=== PATIENT | female | born 1935 | race African-American/Black ===

== ENCOUNTER 2019-08-22 16:12 | Inpatient (IN) | payer MEDICARE, MEDICAID ==
[~2019-08-22] VITALS: Ht 165.1 cm; Wt 69.9 kg
[2019-08-22 17:38] LABS: BASOPHILS % 0.8 % (0.0-2.0); EOSINOPHILS % 3.9 % (0.0-5.0); HEMATOCRIT. 42.3 % (36.0-48.0); LYMPHOCYTES % 31.2 % (20.0-50.0); MEAN PLATELET VOLUME 9.2 fl (7.4-10.4); MONOCYTES % 13.2 % (2.0-8.0); NEUTROPHILS % 50.9 % (40.0-76.0); PLATELET 196 x1000/uL (130-400); RED BLOOD CELL COUNT 4.81 mill/uL (4.2-5.4); RED CELL DISTRIBUTION WIDTH 15.2 % (11.6-14.6)
[2019-08-22 17:43] LABS: CHLORIDE 106 mEq/L (98-107)
[2019-08-22 17:47] LABS: ETHANOL BLOOD < 10 mg/dL
[2019-08-22] MEDS ORDERED: AZITHROMYCIN 500 MG in DEXT 5% WATER 250 ML IV STA (21:23)
[2019-08-22] MEDS ORDERED: CEFTRIAXONE 2 G PREMIX 50 ML IV ONE (21:30)
[2019-08-23 00:09] LABS: CLARITY URINE TURBID (CLEAR); COLOR URINE YELLOW (YELLOW); KETONES URINE NEGATIVE (NEGATIVE); LEUKOCYTE ESTERASE URINE 3+ (NEGATIVE); NITRITE URINE POSITIVE (NEGATIVE); OCCULT BLOOD URINE 3+ (NEGATIVE); PROTEIN URINE TRACE (NEGATIVE); SPECIFIC GRAVITY URINE 1.016 (1.005-1.030); UROBILINOGEN URINE 0.2 E.U./dL (0.2-1.0)
[2019-08-23 00:46] LABS: *BARBITURATES SCREEN URINE NEGATIVE (NEGATIVE); *BENZODIAZEPINES SCREEN URINE NEGATIVE (NEGATIVE); *COCAINE SCREEN URINE NEGATIVE (NEGATIVE)
[2019-08-23 00:47] LABS: *AMPHETAMINES SCREEN URINE NEGATIVE (NEGATIVE); CANNABINOID URINE SCREEN NEGATIVE (NEGATIVE); METHADONE URINE SCREEN NEGATIVE (NEGATIVE); OPIATES URINE SCREEN NEGATIVE (NEGATIVE); PHENCYCLIDINE URINE SCREEN NEGATIVE (NEGATIVE)
[2019-08-23 05:30] VITALS: BP 147/113
[2019-08-23 05:47] VITALS: BP 147/113
[2019-08-23] MEDS ORDERED: SOTA80TA PO (06:02)
[2019-08-23] MEDS ORDERED: ASPI-1497 MT (06:02)
[2019-08-23] MEDS ORDERED: HYDROCODONE/ACETAMINOPHEN 10/325MG TABLET PO PRN (06:45)
[2019-08-23] MEDS ORDERED: HYDRALAZINE 20MG/ML VIAL IV PRN (06:45)
[2019-08-23] MEDS ORDERED: DOCUSATE SODIUM 100MG CAPSULE PO PRN (06:45)
[2019-08-23] MEDS ORDERED: DEXTROSE 50% WATER 50ML SYRINGE IV PRN (06:45)
[2019-08-23] MEDS ORDERED: MORPHINE SULFATE 2 MG/ML CPJ (NOT FOR IM USE) IV PRN (06:45)
[2019-08-23] MEDS ORDERED: ACETAMINOPHEN 325MG TABLET PO PRN (06:45)
[2019-08-23] MEDS ORDERED: IPRATROPIUM/ALBUTEROL 0.5-3(2.5)MG/3ML NEB NEB PRN (06:45)
[2019-08-23] MEDS ORDERED: MAGNESIUM/ALUMINUM HYDROXIDE/SIMETHICONE 30ML UDC PO PRN (06:45)
[2019-08-23] MEDS ORDERED: ONDANSETRON HCL 4MG/2ML INJ IV PRN (06:45)
[2019-08-23] MEDS ORDERED: DIPHENHYDRAMINE 50MG/ML VIAL IV PRN (06:45)
[2019-08-23] MEDS ORDERED: GUAIFENESIN 200MG/10ML SUGAR FREE UDC PO PRN (06:45)
[2019-08-23 06:49] VITALS: BP 157/80
[2019-08-23] MEDS: INSULIN LISPRO 100 UNITS/ML SUBCUT SCH ×4 (07:10→20:25)
[2019-08-23 08:00] VITALS: BP 172/75
[2019-08-23] MEDS: ENOXAPARIN 40MG/0.4ML SYR SUBCUT SCH (09:09)
[2019-08-23] MEDS: BLOOD SUGAR DIAGNOSTIC STRIP TEST SCH ×3 (11:40→20:25)
[2019-08-23 12:00] VITALS: BP 194/86
[2019-08-23] MEDS: LORAZEPAM 2MG/ML CPJ IV PRN (17:54)
[2019-08-23 20:00] VITALS: BP 158/86
[2019-08-23] MEDS: SODIUM CHLORIDE 0.9% INJ 3ML FLUSH IVF SCH (20:25)
[2019-08-23] MEDS: CEFTRIAXONE 1 G PREMIX 50 ML IV SCH (20:38)
[2019-08-23] MEDS: AZITHROMYCIN 500 MG in DEXT 5% WATER 250 ML IV SCH (23:05)
[2019-08-24] VITALS: BP 139/59
[2019-08-24 03:51] VITALS: BP 157/98
[2019-08-24] MEDS: LORAZEPAM 2MG/ML CPJ IV PRN (03:51)
[2019-08-24] MEDS: SODIUM CHLORIDE 0.9% INJ 3ML FLUSH IVF SCH ×3 (03:51→21:05)
[2019-08-24] MEDS: INSULIN LISPRO 100 UNITS/ML SUBCUT SCH ×4 (06:23→21:00)
[2019-08-24] MEDS: BLOOD SUGAR DIAGNOSTIC STRIP TEST SCH ×4 (06:23→21:43)
[2019-08-24 06:57] LABS: BASOPHILS % 0.8 % (0.0-2.0); EOSINOPHILS % 2.2 % (0.0-5.0); HEMATOCRIT. 45.6 % (36.0-48.0); HEMOGLOBIN. 15.2 g/dL (12.0-16.0); LYMPHOCYTES % 17.4 % (20.0-50.0); MEAN CORPUSCULAR HEMOGLOBIN 29.1 pg (28.0-32.0); MEAN CORPUSCULAR VOLUME 87.1 fL (81.0-99.0); MEAN PLATELET VOLUME 9.8 fl (7.4-10.4); MONOCYTES % 11.3 % (2.0-8.0); NEUTROPHILS % 68.3 % (40.0-76.0); PLATELET 188 x1000/uL (130-400); RED BLOOD CELL COUNT 5.24 mill/uL (4.2-5.4)
[2019-08-24 07:02] LABS: CHLORIDE 105 mEq/L (98-107)
[2019-08-24 07:14] LABS: T4 FREE 1.18 ng/dL (0.76-1.46)
[2019-08-24 07:15] LABS: LDL CHOLESTEROL 100 mg/dL (5-100)
[2019-08-24 07:19] LABS: HDL CHOLESTEROL 53 mg/dL (40-59)
[2019-08-24 08:00] VITALS: BP 155/86
[2019-08-24] MEDS: ENOXAPARIN 40MG/0.4ML SYR SUBCUT SCH (09:00)
[2019-08-24 20:00] VITALS: BP 159/92
[2019-08-24] MEDS: CEFTRIAXONE 1 G PREMIX 50 ML IV SCH (21:05)
[2019-08-24] MEDS: AZITHROMYCIN 500 MG in DEXT 5% WATER 250 ML IV SCH (21:05)
[2019-08-24] MEDS: CLONIDINE 0.1MG TABLET PO PRN (22:45)
[2019-08-25] VITALS: BP 126/84
[2019-08-25] MEDS ORDERED: METOPROLOL TARTRATE 5MG/5ML VIAL IV PRN (03:00)
[2019-08-25 04:00] VITALS: BP 154/89
[2019-08-25] MEDS: SODIUM CHLORIDE 0.9% INJ 3ML FLUSH IVF SCH ×3 (06:57→22:13)
[2019-08-25] MEDS: BLOOD SUGAR DIAGNOSTIC STRIP TEST SCH ×3 (06:57→21:00)
[2019-08-25] MEDS: INSULIN LISPRO 100 UNITS/ML SUBCUT SCH ×4 (06:57→21:00)
[2019-08-25 08:00] VITALS: BP 155/55
[2019-08-25] MEDS: ENOXAPARIN 40MG/0.4ML SYR SUBCUT SCH (09:08)
[2019-08-25 12:00] VITALS: BP 124/46
[2019-08-25 12:42] LABS: COVID-19 PCR RNA NOT DETECTED
[2019-08-25 12:43] LABS: COVID-19 PCR RNA NOT DETECTED
[2019-08-25 16:00] VITALS: BP 154/63
[2019-08-25 20:00] VITALS: BP 155/79
[2019-08-25] MEDS: CEFTRIAXONE 1 G PREMIX 50 ML IV SCH (21:26)
[2019-08-25] MEDS: CLONIDINE 0.1MG TABLET PO PRN (21:27)
[2019-08-25] MEDS: AZITHROMYCIN 500 MG in DEXT 5% WATER 250 ML IV SCH (22:14)
[2019-08-25] MEDS: LORAZEPAM 2MG/ML CPJ IV PRN (22:25)
[2019-08-26] VITALS: BP 150/70
[2019-08-26 04:00] VITALS: BP 123/77
[2019-08-26] MEDS: SODIUM CHLORIDE 0.9% INJ 3ML FLUSH IVF SCH ×3 (04:50→21:06)
[2019-08-26] MEDS: INSULIN LISPRO 100 UNITS/ML SUBCUT SCH ×4 (07:32→21:00)
[2019-08-26] MEDS: BLOOD SUGAR DIAGNOSTIC STRIP TEST SCH ×4 (07:32→21:00)
[2019-08-26] MEDS: ENOXAPARIN 40MG/0.4ML SYR SUBCUT SCH (10:23)
[2019-08-26] MEDS: LORAZEPAM 2MG/ML CPJ IV PRN ×2 (10:23→20:43)
[2019-08-26] MEDS: AZITHROMYCIN 500 MG TABLET PO SCH ×2 (17:56→17:58)
[2019-08-26 20:00] VITALS: BP 130/80
[2019-08-26] MEDS: CEFTRIAXONE 1 G PREMIX 50 ML IV SCH (21:05)
[2019-08-27] VITALS: BP 128/60
[2019-08-27 04:00] VITALS: BP 149/66
[2019-08-27] MEDS: SODIUM CHLORIDE 0.9% INJ 3ML FLUSH IVF SCH (05:52)
[2019-08-27] MEDS: BLOOD SUGAR DIAGNOSTIC STRIP TEST SCH ×2 (06:18→12:20)
[2019-08-27] MEDS: INSULIN LISPRO 100 UNITS/ML SUBCUT SCH ×2 (06:58→12:50)
[2019-08-27] MEDS: AZITHROMYCIN 500 MG TABLET PO SCH (08:10)
[2019-08-27] MEDS: ENOXAPARIN 40MG/0.4ML SYR SUBCUT SCH (08:11)
[2019-08-27 08:23] VITALS: BP 143/108
[2019-08-27 12:12] VITALS: BP 159/67
[2019-08-27 12:33] VITALS: BP 159/67
[2019-08-27 16:02] VITALS: BP 116/80
== END 2019-08-27 14:30 | DRG 314 ==
LOC: ER 16:12 → 7EST 08-23 00:26 → ENRESERV 08-23 04:14 → 6WST 08-25 17:30
PROVIDERS: ADMIT Internal Medicine; ATTEND Internal Medicine
DX: I95.9 Hypotension, unspecified (principal); J18.9 Pneumonia, unspecified organism; N39.0 Urinary tract infection, site not specified; E46 Unspecified protein-calorie malnutrition; R00.1 Bradycardia, unspecified; E11.9 Type 2 diabetes mellitus without complications; I11.9 Hypertensive heart disease without heart failure; I48.0 Paroxysmal atrial fibrillation; F03.90 Unspecified dementia, unspecified severity, without behavioral disturbance, psychotic disturbance, mood disturbance, and anxiety; Z86.73 Personal history of transient ischemic attack (TIA), and cerebral infarction without residual deficits; Z11.59 Encounter for screening for other viral diseases
CPT/HCPCS: 36415; 71045; 80053; 80061; 80305; 80320; 81003; 82962; 83880; 84439; 84443; 84484; 85025; 87804; 93005; 93306; 96365; 99285; J0360; J0456; J0696; J1200; J1650; J2060; J7060; G0480

== ENCOUNTER 2020-06-23 21:00 | Inpatient (IN) | payer MEDICARE, MEDICAID ==
[~2020-06-23] VITALS: Ht 167.6 cm; Wt 62.7 kg
[~2020-06-23 21:00] MED LIST: SOTA80TA PO
[2020-06-23 22:16] LABS: BASOPHILS % 0.3 % (0.0-2.0); HEMATOCRIT. 48.7 % (36.0-48.0); HEMOGLOBIN. 14.7 g/dL (12.0-16.0); LYMPHOCYTES % 19.4 % (20.0-50.0); MEAN CORPUSCULAR VOLUME 93.1 fL (81.0-99.0); MEAN PLATELET VOLUME 11.5 fl (7.4-10.4); MONOCYTES % 3.2 % (2.0-8.0); NEUTROPHILS % 77.1 % (40.0-76.0); PLATELET 274 x1000/uL (130-400); RED BLOOD CELL COUNT 5.23 mill/uL (4.2-5.4); RED CELL DISTRIBUTION WIDTH 18.2 % (11.6-14.6)
[2020-06-23 22:39] LABS: CHLORIDE 145 mEq/L (98-107)
[2020-06-23] MEDS ORDERED: PIPERACILLIN/TAZOBACTAM 3.375GM/50ML PREMIX IV ONE (23:00)
[2020-06-23] MEDS: PIPERACILLIN/TAZ 3.375G PREMIX 50 ML IV NR (23:18)
[2020-06-23] MEDS ORDERED: VANCOMYCIN 1 G PREMIX 200 ML IV NR (23:45)
[2020-06-23] MEDS: SODIUM CHLORIDE 0.45% 1,000 ML IV SCH (23:45)
[2020-06-23 23:58] LABS: INR 1.3; PROTHROMBIN TIME 13.6 sec (9.6-11.0)
[2020-06-24 00:18] LABS: CREATINE KINASE 368 IU/L (26-192)
[2020-06-24] MEDS: PIPERACILLIN/TAZ 3.375G PREMIX 50 ML IV NR (01:35)
[2020-06-24] MEDS ORDERED: PIPERACILLIN/TAZ 3.375G PREMIX 50 ML IV SCH (09:00)
[2020-06-24] MEDS ORDERED: DIPHENHYDRAMINE 50MG/ML VIAL IV PRN (09:00)
[2020-06-24] MEDS ORDERED: ENOXAPARIN 40MG/0.4ML SYR SUBCUT SCH (09:00)
[2020-06-24] MEDS ORDERED: ONDANSETRON HCL 4MG/2ML INJ IV PRN (09:00)
[2020-06-24] MEDS ORDERED: CLONIDINE 0.1MG TABLET PO PRN (09:00)
[2020-06-24] MEDS ORDERED: ACETAMINOPHEN 325MG TABLET PO PRN (09:00)
[2020-06-24] MEDS: SODIUM CHLORIDE 0.45% 1,000 ML IV SCH ×2 (09:30→18:02)
[2020-06-24] MEDS: PIPERACILLIN/TAZOBACTAM 2.25 G in DEXTROSE 5% WATER 50 ML IV SCH ×2 (11:07→18:00)
[2020-06-24] MEDS: ENOXAPARIN 30MG/0.3ML SYR SUBCUT SCH (11:08)
[2020-06-24 16:58] LABS: CREATINE KINASE MB FRACTION 10.7 ng/mL (0.5-3.6)
[2020-06-24 18:17] LABS: CLARITY URINE TURBID (CLEAR); COLOR URINE ORANGE (YELLOW); KETONES URINE NEGATIVE (NEGATIVE); LEUKOCYTE ESTERASE URINE 3+ (NEGATIVE); NITRITE URINE POSITIVE (NEGATIVE); OCCULT BLOOD URINE 2+ (NEGATIVE); PH URINE >=9.0 (4.5-8.0); PROTEIN URINE 3+ (NEGATIVE); SPECIFIC GRAVITY URINE 1.019 (1.005-1.030)
[2020-06-24 23:22] LABS: CREATINE KINASE MB FRACTION 9.7 ng/mL (0.5-3.6)
[2020-06-25 05:15] LABS: HEMATOCRIT. 45.7 % (36.0-48.0); HEMOGLOBIN. 13.7 g/dL (12.0-16.0); MEAN CORPUSCULAR VOLUME 93.3 fL (81.0-99.0); MEAN PLATELET VOLUME 11.9 fl (7.4-10.4); PLATELET 223 x1000/uL (130-400); RED CELL DISTRIBUTION WIDTH 18.4 % (11.6-14.6)
[2020-06-25 05:21] LABS: CHLORIDE 143 mEq/L (98-107)
[2020-06-25 05:28] LABS: LDL CHOLESTEROL 68 mg/dL (5-100)
[2020-06-25 05:30] LABS: HDL CHOLESTEROL 16 mg/dL (40-59)
[2020-06-25] MEDS ORDERED: SODIUM CHLORIDE 0.9% 1,000 ML IV ONE (07:30)
[2020-06-25] MEDS ORDERED: NOREPINEPHRINE 8MG/250ML PMX 250 ML IV ONE (07:45)
[2020-06-25] MEDS ORDERED: SODIUM BICARBONATE 8.4% 1 MEQ/ML 50ML SYR IV SCH (08:00)
[2020-06-25] MEDS ORDERED: NOREPINEPHRINE 8 MG in DEXT 5% WATER 242 ML IV PRN (08:00)
[2020-06-25 08:40] LABS: NUCLEATED RED BLOOD CELLS 22 /100 WBC; PLATELET ESTIMATE NORMAL
[2020-06-25] MEDS ORDERED: LIDOCAINE HCL 1% 20ML VIAL (Pyxis) INJ ONE (08:43)
[2020-06-25] MEDS: ENOXAPARIN 30MG/0.3ML SYR SUBCUT SCH (09:00)
[2020-06-25] MEDS ORDERED: SODIUM POLYSTYRENE SULFONATE 15 G/60 ML BOT PO SCH (09:00)
[2020-06-25] MEDS: PIPERACILLIN/TAZOBACTAM 2.25 G in DEXTROSE 5% WATER 50 ML IV SCH ×3 (10:00→18:00)
[2020-06-25 10:32] LABS: BG BASE EXCESS -12.6 mmol/L (-2.0-2.0); BG CARBOXYHEMOGLOBIN 0.7 % (0.5-1.5); BG DEOXYHEMOGLOBIN 11.7 % (0.0-5.0); BG HCO3 ACT 10.7 mmol/L (22.0-26.0); BG METHEMOGLOBIN 0.3 % (0.0-1.5); BG OXYGEN SATURATION 88.2 % (92.0-98.5); BG OXYHEMOGLOBIN 87.3 % (94.0-97.0); BG PCO2 19.9 mmHg (35.0-45.0); BG PH 7.348 (7.350-7.450); BG SAMPLE SITE RIGHT RADIAL; BG TOTAL HEMOGLOBIN 13.5 g/dL (12.0-18.0); BG VENT MODE MASK - NRB
[2020-06-25] MEDS: SODIUM BICARBONATE 100 MEQ in DEXTROSE 5% WATER 1,000 ML IV SCH ×2 (11:58→21:00)
[2020-06-25] MEDS: PANTOPRAZOLE SODIUM 40 MG/VIAL IV SCH ×2 (12:47→16:13)
[2020-06-25] MEDS: LINEZOLID 600 MG PREMIX 300 ML IV SCH ×2 (12:47→23:00)
[2020-06-25 15:00] LABS: HEMATOCRIT 43.1 % (36.0-48.0); HEMOGLOBIN 13.2 g/dL (12.0-16.0)
[2020-06-25 15:20] LABS: TOTAL IRON BINDING CAPACITY 165 ug/dL (250-450)
[2020-06-26] MEDS: PIPERACILLIN/TAZOBACTAM 2.25 G in DEXTROSE 5% WATER 50 ML IV SCH ×2 (02:00→10:00)
[2020-06-26 04:34] LABS: BASOPHILS % 0.2 % (0.0-2.0); EOSINOPHILS % 0.1 % (0.0-5.0); HEMOGLOBIN. 12.3 g/dL (12.0-16.0); LYMPHOCYTES % 20.1 % (20.0-50.0); MEAN CORPUSCULAR HEMOGLOBIN 28.4 pg (28.0-32.0); MEAN CORPUSCULAR VOLUME 91.9 fL (81.0-99.0); MEAN PLATELET VOLUME 11.7 fl (7.4-10.4); MONOCYTES % 1.8 % (2.0-8.0); NEUTROPHILS % 77.8 % (40.0-76.0); PLATELET 131 x1000/uL (130-400); RED BLOOD CELL COUNT 4.35 mill/uL (4.2-5.4); RED CELL DISTRIBUTION WIDTH 18.9 % (11.6-14.6)
[2020-06-26 04:48] LABS: PHOSPHORUS 5.8 mg/dL (2.5-4.9)
[2020-06-26] MEDS: SODIUM BICARBONATE 100 MEQ in DEXTROSE 5% WATER 1,000 ML IV SCH (08:00)
[2020-06-26] MEDS: LINEZOLID 600 MG PREMIX 300 ML IV SCH (09:00)
[2020-06-26] MEDS: ENOXAPARIN 30MG/0.3ML SYR SUBCUT SCH (09:00)
[2020-06-26] MEDS: PANTOPRAZOLE SODIUM 40 MG/VIAL IV SCH (09:00)
[2020-06-26] MEDS ORDERED: LORAZEPAM 2MG/ML CPJ IV PRN (09:45)
[2020-06-26] MEDS ORDERED: MORPHINE SULFATE 2 MG/ML CPJ (NOT FOR IM USE) IV PRN (09:45)
[2020-06-27] VITALS (7 sets, daily range): BP systolic 91–141; BP diastolic 32–96
[2020-06-27] MEDS: PANTOPRAZOLE SODIUM 40 MG/VIAL IV SCH ×2 (02:15→10:15)
[2020-06-27] MEDS: LINEZOLID 600 MG PREMIX 300 ML IV SCH (03:11)
[2020-06-27] MEDS: SODIUM BICARBONATE 100 MEQ in DEXTROSE 5% WATER 1,000 ML IV SCH ×3 (04:10→18:02)
[2020-06-27] MEDS: PIPERACILLIN/TAZOBACTAM 2.25 G in DEXTROSE 5% WATER 50 ML IV SCH ×3 (04:10→13:23)
[2020-06-27] MEDS: ENOXAPARIN 30MG/0.3ML SYR SUBCUT SCH (10:15)
[2020-06-27] MEDS ORDERED: MEROPENEM 500 MG in SODIUM CHLORIDE 0.9% 50 ML IV SCH (16:00)
[2020-06-27] MEDS ORDERED: MORPHINE SULFATE 100 MG in DEXT 5% WATER 90 ML IV PRN (18:30)
[2020-06-28] VITALS: BP 101/42
[2020-06-28 04:00] VITALS: BP 108/29
[2020-06-28] MEDS ORDERED: ATROPINE SULFATE 1% OPHTH 2ML SL PRN (11:15)
== END 2020-06-28 19:21 | DRG 871 ==
LOC: ER 21:00 → EDBEDREQSVC 22:51 → EDBEDREQTM 22:51 → MICUSO 06-24 00:32 → EDBEDREQDT 06-24 00:52 → EDBEDREQ 06-24 00:52 → EDBEDREQTM 06-24 00:52 → ENRESERV 06-26 20:08 → EDBEDREQTM 06-26 23:07 → 5WST 06-26 23:59 → 6EST 06-28 11:47
PROVIDERS: ADMIT Internal Medicine; ATTEND Internal Medicine
PROC: 06HY33Z Insertion of Infusion Device into Lower Vein, Percutaneous Approach (ICD-10-PCS; principal; 2020-06-25)
PROC: B54BZZA Ultrasonography of Right Lower Extremity Veins, Guidance (ICD-10-PCS; 2020-06-25)
DX: A41.9 Sepsis, unspecified organism (principal); I63.9 Cerebral infarction, unspecified; E43 Unspecified severe protein-calorie malnutrition; G92 Toxic encephalopathy; R65.21 Severe sepsis with septic shock; N17.0 Acute kidney failure with tubular necrosis; J96.01 Acute respiratory failure with hypoxia; I21.4 Non-ST elevation (NSTEMI) myocardial infarction; E87.0 Hyperosmolality and hypernatremia; E87.1 Hypo-osmolality and hyponatremia; I50.32 Chronic diastolic (congestive) heart failure; N39.0 Urinary tract infection, site not specified; E72.20 Disorder of urea cycle metabolism, unspecified; E87.2 Acidosis; K92.2 Gastrointestinal hemorrhage, unspecified; K92.1 Melena; E86.0 Dehydration; F03.90 Unspecified dementia, unspecified severity, without behavioral disturbance, psychotic disturbance, mood disturbance, and anxiety; I11.0 Hypertensive heart disease with heart failure; S70.01XA Contusion of right hip, initial encounter; X58.XXXA Exposure to other specified factors, initial encounter; E11.9 Type 2 diabetes mellitus without complications; E86.1 Hypovolemia; E87.5 Hyperkalemia; I48.91 Unspecified atrial fibrillation; Z51.5 Encounter for palliative care; Z66 Do not resuscitate; R74.01 Elevation of levels of liver transaminase levels; Z86.73 Personal history of transient ischemic attack (TIA), and cerebral infarction without residual deficits; Z68.22 Body mass index [BMI] 22.0-22.9, adult; Y93.89 Activity, other specified; Y92.89 Other specified places as the place of occurrence of the external cause; Y99.8 Other external cause status; Z79.899 Other long term (current) drug therapy
CPT/HCPCS: 36415; 36556; 36600; 71045; 76705; 76770; 76937; 80048; 80053; 80061; 80202; 81003; 82140; 82375; 82550; 82553; 82728; 82805; 82962; 83540; 83550; 83605; 83735; 83880; 84100; 84145; 84443; 84484; 85014; 85018; 85025; 87077; 87426; 93005; 93306; 93970; 99291; C1752; C9113; J1650; J2020; J2185; J2270; J2543; J3370; J3490; J7030; J7060; J7070